=== PATIENT | male | born 1995 | race African-American/Black ===

== ENCOUNTER 2021-11-18 06:07 | Observation (INO) ==
[2021-11-18] MEDS ORDERED: Ondansetron ODT 4 MG TAB.RAPDIS SL PRN (07:16)
[2021-11-18] MEDS ORDERED: Naloxone 0.4 MG/ML INJ IVP PRN (07:16)
[2021-11-18] MEDS ORDERED: Acetaminophen 325 MG TABLET PO PRN (07:16)
[2021-11-18] MEDS ORDERED: D5% in Water 1,000 ML IVC PRN (07:18)
[2021-11-18] MEDS ORDERED: Dextrose 4 GM Chewable Tablets PO PRN ×2 (07:18)
[2021-11-18] MEDS ORDERED: *HR* Dextrose 50 % in Water (Syg) 50 ML SYRINGE IVP PRN (07:18)
[2021-11-18] MEDS ORDERED: Ringers Solution, Lactated 1,000 ML IVC SCH (10:00)
[2021-11-18 10:26] LABS: Influenza A PCR Negative (Negative); Influenza B PCR Negative (Negative); Resp. Syncytial Virus PCR Negative (Negative)
[2021-11-18 10:32] LABS: SARS-CoV-2 by PCR (In House) Negative (Negative)
[2021-11-18] MEDS ORDERED: Insulin LISPRO 300 UNITS/3 ML VIAL SUBQ SCH (12:00)
[2021-11-18] MEDS ORDERED: Lidocaine -MPF 1% 5 ML AMPUL ONE (16:06)
[2021-11-18 17:00] VITALS: BP 118/75; PULSE 79; TEMP 98; O2SAT 100
[2021-11-18] MEDS ORDERED: Doxycycline 100 MG CAPSULE PO SCH (21:00)
[2021-11-18] MEDS ORDERED: Melatonin 3 MG TABLET PO PRN (21:00)
[2021-11-19] MEDS ORDERED: *HR* Enoxaparin 40 MG/0.4 ML SYRINGE SQ SCH (06:00)
== END 2021-11-18 18:45 | disposition home or self-care (01) ==
LOC: EMEROOARM 06:07 → 3ANU 06:07
PROVIDERS: ADMIT Internal Medicine; ATTEND Internal Medicine